=== PATIENT | female | born 1975 | race Caucasian/White ===

== ENCOUNTER 2022-02-21 12:56 | Emergency (ER) | payer OTHER ==
[2022-02-21] MEDS ORDERED: NORCO 5-325 TA1 EACH PO (15:08)
== END 2022-02-21 15:24 | disposition home or self-care (01) ==
LOC: FER 12:56
DX: S52.502A Unspecified fracture of the lower end of left radius, initial encounter for closed fracture (principal); V00.121A Fall from non-in-line roller-skates, initial encounter; Y93.51 Activity, roller skating (inline) and skateboarding; Y92.009 Unspecified place in unspecified non-institutional (private) residence as the place of occurrence of the external cause
CPT/HCPCS: 73100